=== PATIENT | male | born 2000 | race Caucasian/White ===

== ENCOUNTER 2019-09-26 06:51 | Emergency (ER) | payer OTHER ==
[~2019-09-26] VITALS: Ht 190.5 cm; Wt 100.0 kg
[~2019-09-26 06:51] MED LIST: LISD60CA PO
[2019-09-26 07:00] VITALS: BP 120/71
[2019-09-26] MEDS ORDERED: CIPR7.5D AD (07:21)
--- NOTE | 2019-09-26 07:21 | PHYS DOC ---
Past History Past Medical History: No Pertinent History, Other Past Surgical History: Tonsillectomy, Other Smoking: Non-smoker Alcohol Use: None Drug Use: None General Adult EDM: Chief Complaint: EARACHE/EAR PAIN HPI: HPI: Patient is an otherwise healthy 18-year-old male who presents with pain in his right ear. He states it feels like it swollen. Feels like there may be fluid behind his ear. Denies any fever chills or sweats. Has not had any rash. [] Review of Systems: Review of Systems: Constitutional: Denies fever or chills Eyes: Denies change in visual acuity HENT: Per HPI Respiratory: Denies cough or shortness of breath Cardiovascular: Denies chest pain or edema GI: Denies abdominal pain, nausea, vomiting, bloody stools or diarrhea : Denies dysuria Musculoskeletal: Denies back pain or joint pain Integument: Denies rash Neurologic: Denies headache, focal weakness or sensory changes Endocrine: Denies polyuria or polydipsia Lymphatic: Denies swollen glands Psychiatric: Denies depression or anxiety Heart Score: Risk Factors: Risk Factors: DM, Current or recent (<one month) smoker, HTN, HLP, family history of CAD, obesity. Risk Scores: Score 0 - 3: 2.5% MACE over next 6 weeks - Discharge Home Score 4 - 6: 20.3% MACE over next 6 weeks - Admit for Clinical Observation Score 7 - 10: 72.7% MACE over next 6 weeks - Early Invasive Strategies Allergies: Allergies: Allergies Coded Allergies Type Severity Reaction Last Updated Verified No Known Drug Allergies 02/24/14 No Physical Exam: PE: Constitutional: Well developed, well nourished, no acute distress, non-toxic appearance. [] HENT: The canal on the right is swollen and erythematous [] Eyes: PERRLA, EOMI, conjunctiva normal, no discharge. [] Neck: Normal range of motion, no tenderness, supple, no stridor. [] Cardiovascular:Heart rate regular rhythm, no murmur [] [] Psychologic: Affect normal, judgement normal, mood normal. [] Current Patient Data: Vital Signs: Vital Signs Date Time Temp Pulse Resp B/P (MAP) Pulse Ox O2 Delivery O2 Flow Rate FiO2 09/26/19 07:00 98.5 75 16 120/71 (87) 97 Room Air EKG: EKG: [] Radiology/Procedures: Radiology/Procedures: [] Course & Med Decision Making: Course & Med Decision Making Pertinent Labs and Imaging studies reviewed. (See chart for details) [] Dragon Disclaimer: Dragon Disclaimer: This electronic medical record was generated, in whole or in part, using a voice recognition dictation system. Departure Departure: Impression: Primary Impression: Otitis externa of right ear Qualified Codes: H60.501 - Unspecified acute noninfective otitis externa, right ear Disposition: HOME/RESIDENCE PRIOR TO ADM Condition: STABLE Referrals: JORGE LUIS JACOB DO (PCP) Patient Instructions: Otitis Externa Scripts Ciprofloxacin Hcl/Dexameth (CIPRODEX OTIC SUSPENSION) 7.5 Ml Drops.susp 4 DROP AD BID for otitis externa, #7.5 ML Prov: HUNG NESBITT DO 09/26/19 HUNG NESBITT DO September 26, 2019 07:21
== END 2019-09-26 07:23 | disposition home or self-care (01) ==
LOC: ER 06:51
DX: H60.501 Unspecified acute noninfective otitis externa, right ear (principal)
CPT/HCPCS: 99283

== ENCOUNTER 2020-11-26 14:12 | Emergency (ER) | payer OTHER ==
[~2020-11-26] VITALS: Ht 190.5 cm; Wt 92.0 kg
[2020-11-26 14:12] VITALS: BP 120/71
[~2020-11-26 14:12] MED LIST changes: +CIPR7.5D AD
--- NOTE | 2020-11-26 14:51 | PHYS DOC ---
Past History Past Medical History: No Pertinent History, Other (MARQUEZ CABALLERO APRN) Past Surgical History: Tonsillectomy, Other (MARQUEZ CABALLERO APRN) Smoking: Non-smoker Alcohol Use: Occasionally Drug Use: None (MARQUEZ CABALLERO APRN) General Adult EDM: Chief Complaint: UPPER EXTREMITY INJURY HPI: HPI: Patient is a 19-year-old male being seen in the ER today for right elbow pain after he fell onto it this morning around 3:00. Patient reports that he believes he slipped on mud and fell onto his left elbow. He denies any head/neck pain, decreased mobility to right arm, decreased sensation right arm. (MARQUEZ CABALLERO APRN) Review of Systems: Review of Systems: 14 body systems of the review of systems have been reviewed. See HPI for pertinent positive and negative responses, otherwise all other systems are negative, nonpertinent or noncontributory (MARQUEZ CABALLERO APRN) Allergies: Allergies: Allergies Coded Allergies Type Severity Reaction Last Updated Verified No Known Drug Allergies 02/24/14 No (MARQUEZ CABALLERO APRN) Physical Exam: PE: Constitutional: Well developed, well nourished, no acute distress, non-toxic appearance. [] HENT: Normocephalic, atraumatic Eyes: PERRL, conjunctiva normal, no discharge. [] Neck: Normal range of motion, no stridor, no bony spinal tenderness Cardiovascular: Normal peripheral perfusion Lungs & Thorax: No increased work of breathing, no tachypnea Skin: Warm, dry, no erythema, no rash. [] Back: No bony spinal tenderness, normal range of motion Extremities: No cyanosis, no clubbing, ROM intact, no edema. Right elbow: Golf ball sized hematoma to right elbow, range of motion intact, neurologically intact. [] Neurologic: Alert and oriented X 3, normal motor function, normal sensory function, no focal deficits noted. [] Psychologic: Affect normal, judgement normal, mood normal. [] (MARQUEZ CABALLERO APRN) EKG: EKG: [] (MARQUEZ CABALLERO APRN) Radiology/Procedures: Radiology/Procedures: PROCEDURE: ELBOW RIGHT 3V Exam performed : 3 views rightelbow. Indication: Right elbow pain status post fall Date of Service: 11/26/2020 Comparison: None available Discussion: AP, oblique and lateral radiographs of the elbow reveal the osseous structures to be intact and well aligned. The joint space is well-preserved. Evidence of fracture or dislocation is not seen. Impression: No acute findings seen in the right elbow. Electronically signed by: Shweta Elaine MD (11/26/2020 3:06 PM) [id number] DICTATED AND SIGNED BY: SHWETA ELAINE MD DATE: 11/26/20 1444 CC: EMERGENCY,DEPARTMENT; JORGE LUIS JACOB DO; MARQUEZ CABALLERO APRN ~MTH0 0 (MARQUEZ CABALLERO APRN) Heart Score: C/O Chest Pain: No Risk Factors: Risk Factors: DM, Current or recent (<one month) smoker, HTN, HLP, family history of CAD, obesity. Risk Scores: Score 0 - 3: 2.5% MACE over next 6 weeks - Discharge Home Score 4 - 6: 20.3% MACE over next 6 weeks - Admit for Clinical Observation Score 7 - 10: 72.7% MACE over next 6 weeks - Early Invasive Strategies (MARQUEZ CABALLERO APRN) Course & Med Decision Making: Course & Med Decision Making Pertinent Labs and Imaging studies reviewed. (See chart for details) Patient is a 19-year-old male being seen in the ER for right elbow pain after he slipped and fell onto it this morning. An x-ray was performed in the ER that showed no acute fracture. Eriberto wrap applied. I discussed with patient all findings and diagnostic testing as well as the need to follow-up with PCP for further evaluation and treatment or return to the ER if any new or worsening symptoms. Strict return precautions were also discussed at length. Patient voiced understanding and agreement with the plan. Patient is hemodynamically stable at the time of disposition. (MARQUEZ CABALLERO APRN) Dragon Disclaimer: Dragon Disclaimer: This electronic medical record was generated, in whole or in part, using a voice recognition dictation system. (MARQUEZ CABALLERO APRN) Attending Co-Sign The patient was seen and interviewed as well as examined at the bedside. The chart was reviewed. The case was discussed. Agree with the plan of care. (CHARLIE CARRION DO) Departure Departure: Impression: Primary Impression: Elbow contusion Qualified Codes: S50.01XA - Contusion of right elbow, initial encounter Disposition: 01 HOME / SELF CARE / HOMELESS Condition: GOOD Referrals: JORGE LUIS JACOB DO (PCP) Patient Instructions: Elbow Contusion, RICE - Routine Care for Injuries Additional Instructions: You were seen in the emergency department today for a musculoskeletal problem that will likely improve over time. Your symptoms may be improved by something called the rice protocol. This is rest, ice, compression, elevation. Please follow-up when doing intense exercises that may make the pain worse. Sometimes gentle stretching can provide relief, but be careful to injury. It is important to perform gentle range of motion exercises to prevent stiff joints and chronic pain. Use ice packs over the affected areas to help decrease your pain. For the first 24 hours you can apply ice 20 minutes on 20 minutes off for 4 times per day. Sometimes compression such as the use of an Eriberto wrap can help with the swelling. You may also elevate the affected area to help with the swelling. You can take Tylenol/ibuprofen for pain. If your symptoms persist please follow- up with your primary care doctor. If you develop worsening of your pain, increased swelling, decreased sensation to your arm, decreased range of motion please return to the ER. EMERGENCY DEPARTMENT GENERAL DISCHARGE INSTRUCTIONS Thank you for coming to [facility] (ED) today and trusting us with you care. We trust that you had a positivie experience in our Emergency Department. If you wish to speak to the department management, you may call the director at [phone]. YOUR FOLLOW UP INSTRUCTIONS ARE FOLLOWS: 1. Do you have a private Doctor? If you do not have a private doctor, please ask for a resource list of physicians or clinics that may be able to assist you with follow up care. 2. The Emergency Physician has interpreted your x-rays. The X-Ray specialist will also review them. If there is a change in the findings, you will be notified in 48 hours when at all possible. 3. A lab test or culture has been done, your results will be reviewed and you will be notified if you need a change in treatment. ADDITIONAL INSTRUCTIONS AND INFORMATION: 1. Your care today has been supervised by a physician who is specially trained in emergency care. Many problems require more than one evaluation for a complete diagnosis and treatment. We recommend that you schedule your follow up appointment as recommended to ensure complete treatment of you illness or injury. If you are unable to obtain follow up care and continue to have a problem, or if your condition worsens, we recommend that you return to the ED. 2. We are not able to safely determine your condition over the phone nor are we able to give sound medical advice over the phone. For these safety reasons, if you call for medical advice we will ask you to come to the ED for further evaluation. 3. If you have any questions regarding these discharge instructions please call the ED at [phone]. SAFETY INFORMATION: In the interest of safety, wellness, and injury prevention; we encourage you to wear your sealbelt, if you smoke; quite smoking, and we encourage family to use a protective helmet for bicycling and other sporting events that present an increased risk for head injury. IF YOUR SYMPTOMS WORSEN OR NEW SYMPTOMS DEVELOP, OR YOU HAVE CONCERNS ABOUT YOUR CONDITION; OR IF YOUR CONDITION WORSENS WHILE YOU ARE WAITING FOR YOUR FOLLOW UP APPOINTMENT; EITHER CONTACT YOUR PRIMARY CARE DOCTOR, THE PHYSICIAN WHOSE NAME AND NUMBER YOU WERE GIVEN, OR RETURN TO THE ED IMMEDIATELY. MARQUEZ CABALLERO APRN Nov 26, 2020 14:51 CHARLIE CARRION DO Nov 27, 2020 06:11
--- NOTE | 2020-11-26 15:09 | RAD ---
Exam performed : 3 views rightelbow. Indication: Right elbow pain status post fall Date of Service: 11/26/2020 Comparison: None available Discussion: AP, oblique and lateral radiographs of the elbow reveal the osseous structures to be intact and well aligned. The joint space is well-preserved. Evidence of fracture or dislocation is not seen. Impression: No acute findings seen in the right elbow. Electronically signed by: Shweta Elaine MD (11/26/2020 3:06 PM) [id number]
== END 2020-11-26 15:30 | disposition home or self-care (01) ==
LOC: ER 14:12
DX: S50.01XA Contusion of right elbow, initial encounter (principal); W01.0XXA Fall on same level from slipping, tripping and stumbling without subsequent striking against object, initial encounter; Y93.89 Activity, other specified; Y92.89 Other specified places as the place of occurrence of the external cause; Y99.8 Other external cause status
CPT/HCPCS: 73080; 99283